=== PATIENT | male | born 1950 | race Caucasian/White ===

== ENCOUNTER 2018-07-28 20:26 | Observation (INO) ==
[2018-07-28] MEDS ORDERED: 0.9 % Sodium Chloride 2,000 ML ONE (20:44)
[2018-07-28] MEDS ORDERED: Isovue-370 500 ML INFUS..BTL IV ONE (21:12)
[2018-07-28] MEDS ORDERED: *HR* FentaNYL (PF) 100 MCG/2 ML VIAL IVP ONE (21:13)
[2018-07-28 21:38] LABS: Basophils % 0.1 %; Eosinophils % 0.1 %; Hematocrit 40.3 % (37.5-50.1); Hemoglobin 13.7 g/dL (12.9-16.9); Immature Granulocytes % 0.3 % (0-4); Lymphocytes # 0.4 K/mcL (0.6-4.6); Lymphocytes % 3.6 %; Mean Corpuscular Hemoglobin 31.9 pg (28.0-33.3); Mean Corpuscular Volume 93.7 fL (83.0-100.0); Mean Platelet Volume 8.8 fL (9.4-12.4); Monocytes # 0.4 K/mcL (0.0-1.3); Monocytes % 3.2 %; Neutrophils # 10.9 K/mcL (1.6-8.9); Platelet Count 145 K/mcL (140-400); Red Cell Distribution Width 12.2 % (11.5-14.5); Segmented Neutrophils % 92.7 %
[2018-07-28 22:00] LABS: BUN/Creatinine Ratio 15 (6-26); Blood Urea Nitrogen 18 mg/dL (8-23); Calcium 8.7 mg/dL (8.6-10.3); Carbon Dioxide 23 mEq/L (23-29); Chloride 107 mEq/L (98-107); Glucose 98 mg/dL (70-105); Osmolality,Calculated 292 (280-300); Sodium 140 mEq/L (136-145); eGFR For Non-African Americans > 60 (> 60)
--- NOTE | 2018-07-28 22:27 | Emergency Department Note ---
Disposition Clinical Impression: Pelvic pain in male, Tachycardia, Dehydration, Status post colonoscopy with polypectomy Disposition: Admitted As Inpatient Condition: Fair Referrals: Jamal Wilkinson MD [Primary Care Provider] - Forms: ED Satisfaction Letter, Work/School Release Time of Disposition: 02:06 Abdominal Pain HPI - General Chief Complaint: ED General Medical Stated Complaint: Hip pain, weakness Time Seen by Provider: 07/28/18 21:01 Source: patient Mode of arrival: private vehicle Limitations: no limitations Nursing Notes Reviewed: Yes Vital Signs Reviewed: Yes - History of Present Illness Pt Subjective Complaint: other (Patient complains of groin discomfort and bilateral hip discomfort.) Onset (ago): hour(s) (He started a couple of hours ago, about 3 hours after undergoing diagnostic colonoscopy) Consistency: constant Pain Severity: moderate Pain Scale: 5 Quality: aching Radiation: none Migration to: no migration Improves with: nothing Worsens with: other (Movement of lower extremities and taking a deep breath) Context: recent surgery/procedure (Had a colonoscopy a couple hours prior to the onset of his discomfort.) Associated symptoms: Reports: nausea Treatments prior to arrival: none - Related Data Home Medications Medication Instructions Recorded Confirmed ALPRAZolam [Xanax 0.5 MG Tablet] 0.5 mg PO DAILY PRN 02/08/16 07/28/18 Clopidogrel [Plavix] 75 mg PO DAILY 02/08/16 07/28/18 Lisinopril [Zestril] 40 mg PO DAILY 02/08/16 07/28/18 Rabeprazole Sodium [Aciphex] 20 mg PO DAILY 02/08/16 07/28/18 Ascorbic Acid [Vitamin C] 1,000 mg PO DAILY 06/21/18 07/28/18 Cholecalciferol (Vitamin D3) 5,000 unit PO DAILY 06/21/18 07/28/18 [Vitamin D] Labetalol HCl 200 mg PO BID 06/21/18 07/28/18 Sodium Bicarbonate 325 mg PO DAILY 06/21/18 07/28/18 Trazodone HCl 100 mg PO HS PRN 06/21/18 07/28/18 Folic Acid 1 mg PO DAILY 07/28/18 07/28/18 Lactobacillus Combination No.8 1 cap PO DAILY 07/28/18 07/28/18 [Adult Probiotic] Nitroglycerin [Nitrostat] 0.4 mg SL DAILY PRN 07/28/18 07/28/18 Ubidecarenone [Coq10] 1 tab PO DAILY 07/28/18 07/28/18 Allergies Allergy/AdvReac Type Severity Reaction Status Date / Time midazolam [From Versed] Allergy Hives Verified 07/28/18 20:27 Sulfa (Sulfonamide Allergy Hives Verified 07/28/18 20:27 Antibiotics) All systems ED: reviewed and negative except as stated. Constitutional: Reports: chills. Denies: fever ENT ED: Denies: ear pain, throat pain, congestion Cardiovascular: Denies: chest pain, palpitations Respiratory: Denies: cough, dyspnea Gastrointestinal: Reports: abdominal pain, nausea Genitourinary: Denies: urgency, dysuria Musculoskeletal: Denies: back pain Integumentary: Denies: rash Abdominal Pain PMH - Past Medical History Medical history: Reports: arthritis, GERD, hyperlipidemia, hypertension, myocardial infarction Male Surgical History: Reports: coronary bypass (CABG) Psychiatric history: Reports: no psych history - Social History Smoking status: Never smoker Alcohol use: Reports: none Drug use: Reports: none Physical Exam - General Limitations: no limitations General appearance: alert, other (Looks a little pale and worn out) - Head Head exam: atraumatic, normocephalic, normal inspection - Eye Eye exam: Present: normal appearance, PERRL, EOMI. Absent: scleral icterus, conjunctival injection - ENT ENT exam: normal exam, normal oropharynx, mucous membranes moist, normal external ear exam - Neck Neck exam: Present: normal inspection, full ROM - Chest Chest inspection: Present: normal inspection, symmetric chest wall rise. Absent: tenderness - Respiratory Respiratory exam: Present: normal lung sounds bilaterally. Absent: respiratory distress, wheezes - Cardiovascular Cardiovascular exam: Present: normal rhythm, tachycardia, normal heart sounds - Abdominal Exam Abdominal exam: Present: soft, Non-Tender, normal bowel sounds - Extremities Exam Extremities exam: Present: normal inspection, full ROM, other (Patient does have some discomfort with both passive and active range of motion of each hip joint.). Absent: tenderness - Neurological Exam Neurological exam: Present: alert, oriented X3. Absent: motor sensory deficit - Psychiatric Psychiatric exam: Present: normal affect, normal mood - Skin Skin exam: Present: warm, dry. Absent: rash Course Course Narrative: Patient presents with hip pain and pelvic pain that started a few hours after colonoscopy. The belly exam is pretty benign and he has discomfort in the actual hip joints when I put his hips through passive and active range of motion. This makes me suspicious that this is a purely muscle skeletal issue. However he shows up feeling uncomfortable and he is pale and he is got a heart rate 140. Whereas this could be a reaction to the medications he had during the colonoscopy, I have to be extremely concerned that there is a perforation and he is just feeling like its in his pelvis or hip joints. I initiated a lab workup. We are going to go directly to CT scan. Disposition will be based on diagnostic results and reevaluation. - Reevaluation(s) Reevaluation #1: Labs look fine. However heart rate continues to be elevated. Patient feels some nausea. CT scan of the abdomen and pelvis revealed no evidence of perforation or other intra-abdominal process. Patient does have ketones in his urine and he just feels generally ill. He may be a little dehydrated because he was nothing by mouth before the scan. He may also be feeling bad because he was medicated for the colonoscopy. When not seeing an acute cardiac issue. There is no sign of perforation. No evidence of active infection. I am going to keep the patient overnight and hydrate him a little bit more as you are feels in the morning. I will re-spoke with the hospitalist who is accepted for admission. Time: 02:05 - Consultations Consultation #1: Dr. Maldonado, hospitalist - I discussed the case with the hospitalist. He has accepted the patient for admission. Time: 02:05 Vital Signs Temperature 98.1 F 07/28/18 20:27 Pulse Rate 143 07/28/18 20:27 Respiratory Rate 20 07/28/18 20:27 Blood Pressure 152/101 07/28/18 20:27 O2 Sat by Pulse Oximetry 98 07/28/18 20:27 Temperature 98.9 F 07/29/18 02:02 Pulse Rate 111 07/29/18 02:02 Respiratory Rate 20 07/29/18 02:02 Blood Pressure 131/78 07/29/18 02:02 O2 Sat by Pulse Oximetry 98 07/29/18 02:02 Oxygen Delivery Oxygen Delivery Room Air Abdominal Pain - Medical Records Medical records reviewed: Yes I reviewed the patient's medical records. - Lab Data Lab results reviewed: Yes I reviewed the patient's lab results. Result diagrams: 07/28/18 21:32 07/28/18 21:32 Lab Results 07/28/18 07/28/18 07/28/18 Range/Units 21:32 21:32 21:32 WBC 11.8 H (4.3-11.1) K/mcL RBC 4.30 (4.19-5.50) M/mcL Hgb 13.7 (12.9-16.9) g/dL Hct 40.3 (37.5-50.1) % MCV 93.7 (83.0-100.0) fL MCH 31.9 (28.0-33.3) pg MCHC 34.0 (31.6-35.5) g/dL RDW 12.2 (11.5-14.5) % Plt Count 145 (140-400) K/mcL MPV 8.8 L (9.4-12.4) fL Immature Gran % 0.3 (0-4) % Seg Neutrophils % 92.7 % Lymphocytes % 3.6 % Monocytes % 3.2 % Eosinophils % 0.1 % Basophils % 0.1 % Neutrophils # 10.9 H (1.6-8.9) K/mcL Lymphocytes # 0.4 L (0.6-4.6) K/mcL Monocytes # 0.4 (0.0-1.3) K/mcL Eosinophils # 0.0 (0.0-0.6) K/mcL Basophils # 0.0 (0.0-0.2) K/mcL Sodium 140 (136-145) mEq/L Potassium 4.0 (3.5-5.1) mEq/L Chloride 107 (98-107) mEq/L Carbon Dioxide 23 (23-29) mEq/L BUN 18 (8-23) mg/dL Creatinine 1.17 (0.70-1.30) mg/dL Est GFR ( Amer) > 60 (> 60) Est GFR (Non-Af Amer) > 60 (> 60) BUN/Creatinine Ratio 15 (6-26) Glucose 98 (70-105) mg/dL Calculated Osmolality 292 (280-300) Lactic Acid 0.6 (0.5-2.2) mmol/L Calcium 8.7 (8.6-10.3) mg/dL Troponin I (< 0.04) ng/mL Urine Color (Yellow) Urine Clarity (Clear) Urine pH (5.0-8.0) pH Units Ur Specific [place] (1.010-1.025) Urine Protein (Neg-Trace) mg/dL Urine Glucose (UA) (Normal) mg/dL Urine Ketones (Negative) mg/dL Urine Blood (Negative) Urine Nitrite (Negative) Urine Bilirubin (Negative) Urine Urobilinogen (Normal) mg/dL Ur Leukocyte Esterase (Negative) Ur Culture Indicated? (NO) 07/28/18 07/29/18 Range/Units 21:32 01:14 WBC (4.3-11.1) K/mcL RBC (4.19-5.50) M/mcL Hgb (12.9-16.9) g/dL Hct (37.5-50.1) % MCV (83.0-100.0) fL MCH (28.0-33.3) pg MCHC (31.6-35.5) g/dL RDW (11.5-14.5) % Plt Count (140-400) K/mcL MPV (9.4-12.4) fL Immature Gran % (0-4) % Seg Neutrophils % % Lymphocytes % % Monocytes % % Eosinophils % % Basophils % % Neutrophils # (1.6-8.9) K/mcL Lymphocytes # (0.6-4.6) K/mcL Monocytes # (0.0-1.3) K/mcL Eosinophils # (0.0-0.6) K/mcL Basophils # (0.0-0.2) K/mcL Sodium (136-145) mEq/L Potassium (3.5-5.1) mEq/L Chloride (98-107) mEq/L Carbon Dioxide (23-29) mEq/L BUN (8-23) mg/dL Creatinine (0.70-1.30) mg/dL Est GFR ( Amer) (> 60) Est GFR (Non-Af Amer) (> 60) BUN/Creatinine Ratio (6-26) Glucose (70-105) mg/dL Calculated Osmolality (280-300) Lactic Acid (0.5-2.2) mmol/L Calcium (8.6-10.3) mg/dL Troponin I < 0.03 (< 0.04) ng/mL Urine Color Yellow (Yellow) Urine Clarity Clear (Clear) Urine pH 5.0 (5.0-8.0) pH Units Ur Specific [place] 1.015 (1.010-1.025) Urine Protein Negative (Neg-Trace) mg/dL Urine Glucose (UA) Normal (Normal) mg/dL Urine Ketones 80 H (Negative) mg/dL Urine Blood Negative (Negative) Urine Nitrite Negative (Negative) Urine Bilirubin Negative (Negative) Urine Urobilinogen Normal (Normal) mg/dL Ur Leukocyte Esterase Negative (Negative) Ur Culture Indicated? NO (NO) - Radiology Data Radiology results reviewed: Yes I reviewed the patient's radiology results. - EKG Data EKG attestation: Yes I reviewed and interpreted this EKG. EKG results narrative: Twelve-lead EKG performed at 20 1:22 PM ordered, reviewed and interpreted by ED physician shows sinus tachycardia at a rate of 1:15. Normal axis. Good hour progression across precordium. No acute ischemic changes. Intervals are within normal limits.
[2018-07-29 01:28] LABS: Bilirubin,Urine Negative (Negative); Blood,Urine Negative (Negative); Clarity,Urine Clear (Clear); Color,Urine Yellow (Yellow); Glucose,Urine (UA) Normal (Normal); Ketones,Urine 80 mg/dL (Negative); Leukocyte Esterase,Urine Negative (Negative); Nitrite,Urine Negative (Negative); Protein,Urine Negative (Neg-Trace); Specific Gravity,Urine 1.015 (1.010-1.025); Urobilinogen,Urine Normal (Normal)
[2018-07-29] MEDS ORDERED: Isovue-370 500 ML INFUS..BTL IV ONE (02:56)
[2018-07-29] MEDS ORDERED: Naloxone 0.4 MG/ML INJ IVP PRN (02:56)
[2018-07-29] MEDS: 0.9 % Sodium Chloride 1,000 ML IVC SCH ×2 (03:37→15:14)
[2018-07-29 10:37] LABS: Basophils % 0.1 %; Eosinophils % 0.1 %; Hematocrit 37.9 % (37.5-50.1); Hemoglobin 12.7 g/dL (12.9-16.9); Immature Granulocytes % 0.4 % (0-4); Lymphocytes # 1.3 K/mcL (0.6-4.6); Lymphocytes % 8.7 %; Mean Corpuscular HGB Conc 33.5 g/dL (31.6-35.5); Mean Corpuscular Hemoglobin 31.5 pg (28.0-33.3); Mean Platelet Volume 8.6 fL (9.4-12.4); Monocytes # 0.8 K/mcL (0.0-1.3); Monocytes % 5.6 %; Neutrophils # 12.3 K/mcL (1.6-8.9); Platelet Count 155 K/mcL (140-400); Red Blood Count 4.03 M/mcL (4.19-5.50); Red Cell Distribution Width 12.5 % (11.5-14.5); Segmented Neutrophils % 85.1 %
[2018-07-29 10:57] LABS: Alanine Aminotransferase 18 Units/L (7-52); Albumin 3.4 g/dL (3.5-5.7); Albumin/Globulin Ratio 1.4 (1.1-2.2); Alkaline Phosphatase 44 Units/L (34-104); Aspartate Amino Transferase 21 Units/L (13-39); BUN/Creatinine Ratio 13 (6-26); Bilirubin,Total 1.5 mg/dL (0.3-1.0); Blood Urea Nitrogen 16 mg/dL (8-23); Calcium 8.9 mg/dL (8.6-10.3); Carbon Dioxide 26 mEq/L (23-29); Chloride 104 mEq/L (98-107); Globulin 2.4 g/dL (2.4-3.5); Glucose 112 mg/dL (70-105); Osmolality,Calculated 286 (280-300); Potassium 3.9 mEq/L (3.5-5.1); Sodium 137 mEq/L (136-145); Total Protein 5.8 g/dL (6.4-8.9); eGFR For Non-African Americans 57 (> 60)
[2018-07-29] MEDS ORDERED: Acetaminophen 325 MG TABLET PO PRN (14:43)
--- NOTE | 2018-07-29 14:48 | Internal Med History&Physical ---
Date of Encounter: 07/29/18 Time of Encounter: 14:10 Assessment and Plan (1) Lingular pneumonia Current visit: Yes Status: Acute Blood cultures will be drawn and he will be started empirically on Zosyn and Zithromax with lactobacillus. (2) CKD (chronic kidney disease) stage 2, GFR 60-89 ml/min Current visit: Yes Status: Acute Stable. Creatinine was 1.27 on 07/08/2014. Continue to monitor. (3) Hypertension Current visit: Yes Status: Chronic Labetalol will be continued. Lisinopril will be held and azotemia will be monitored. Qualifiers: Hypertension type: essential hypertension Qualified Code(s): I10 - Essential (primary) hypertension (4) CAD (coronary artery disease) Current visit: Yes Status: Acute Continue Plavix and labetalol. Qualifiers: Coronary Disease-Associated Artery/Lesion type: unspecified vessel or lesion type Associated angina: angina presence unspecified Qualified Code(s): I 25.10 - Atherosclerotic heart disease of [place] coronary artery without angina pectoris (5) Barretts esophagus Current visit: Yes Status: Acute Continue PPI. Qualifiers: Duque's esophagus type: with dysplasia of unspecified degree Qualified Code(s): K22.719 - Duque's esophagus with dysplasia, unspecified; K22.71 - Duque's esophagus with dysplasia Internal Medicine - H&P: HPI Chief complaint: Chills, hip pain, vomiting Admitted From: Emergency Dept Plans for Post Hospital Care: Home History of present illness: Mr. Whitehead is a 68 year old male who came to emergency room stating he had been released from [facility] approximately 4 PM following uneventful outpatient EGD and colonoscopy with 3 polyps resected. Approximately 6 PM at home while at leisure he had a sudden onset of chills which lasted approximately an hour and a half. He spoke to a friend who was a title i director who thought it might be early signs of flu or other infection. He decided to come to emergency room for further evaluation. He experienced severe sudden pain in his hips while walking to his vehicle to come to emergency room. He also had a single episode of vomiting. He was evaluated in emergency room and found to have slight leukocytosis but left shift present. Abdominal CT showed probable lingular infiltrate. He was admitted to [facility] floor for ongoing care needs. He states his hip pain has resolved. He denies dyspnea or cough or abdominal pain. Past Med Surg Social Fam HX - Past Medical History Medical history: arthritis, GERD, hyperlipidemia, hypertension, myocardial infarction Additional medical history: CAD, SHINGLES, BARRETTS ESOPHAGUS, ANEMIA, BPH, OPEN HEART 4 BYPASS, [place], DIVERTICULOSIS, COLON POLYPS, INSONMIA Psychiatric history: no psych history - Past Surgical History Surgical History: coronary bypass (CABG) Additional surgical history: HEART CATH 2 STENTS, EGD, COLONOSCOPY - Social History Smoking Status: Never smoker Smokeless Tobacco Status: No Alcohol use: none Drug use: none - Family History Father Living Status: Cause of : [place] Hx Family Cardiac Disorders: Yes ([place]) Internal Medicine - H&P: Meds ALPRAZolam [Xanax 0.5 MG Tablet] 0.5 mg PO DAILY PRN 02/08/16 [History] Clopidogrel [Plavix] 75 mg PO DAILY 02/08/16 [History] Lisinopril [Zestril] 40 mg PO DAILY 02/08/16 [History] Rabeprazole Sodium [Aciphex] 20 mg PO DAILY 02/08/16 [History] Ascorbic Acid [Vitamin C] 1,000 mg PO DAILY 06/21/18 [History] Cholecalciferol (Vitamin D3) [Vitamin D] 5,000 unit PO DAILY 06/21/18 [History] Labetalol HCl 200 mg PO BID 06/21/18 [History] Sodium Bicarbonate 325 mg PO DAILY 06/21/18 [History] Trazodone HCl 100 mg PO HS PRN 06/21/18 [History] Folic Acid 1 mg PO DAILY 07/28/18 [History] Lactobacillus Combination No.8 [Adult Probiotic] 1 cap PO DAILY 07/28/18 [History] Nitroglycerin [Nitrostat] 0.4 mg SL DAILY PRN 07/28/18 [History] Ubidecarenone [Coq10] 1 tab PO DAILY 07/28/18 [History] Allergy/AdvReac Type Severity Reaction Status Date / Time midazolam [From Versed] Allergy Hives Verified 07/28/18 20:27 Sulfa (Sulfonamide Allergy Hives Verified 07/28/18 20:27 Antibiotics) All Systems PM: A 10-system review of systems was performed and is negative for pertinent findings except as documented above in the HPI. Review of systems: Gen.: He states his weight has been stable the past few months Cardiovascular: He has history of hypertension and known ASHD status post [place] followed by four-vessel CABG 2006. He had 2 stents placed approximately 2010. He had EST August 2016 without further intervention recommended. He had echocardiogram 09/14/2016 which showed LVEF of 55-60%. There was mild diastolic dysfunction noted with E/A ratio of 0.8. No significant valvular abnormality was seen. He denies DVT or pulmonary embolus. Respiratory: He is a lifelong nonsmoker and has no known chronic lung disease. He thinks he possibly has MARIELY but has not had formal testing. GI: He denies disorders of his liver gallbladder or exocrine pancreas. He has history of Duque's esophagus. He had panendoscopy on July 28 with unremarkable esophagus but 3 colon polyps were found and resected. : He denies hematuria or kidney stones. He was unaware he likely has chronic kidney disease stage II. He has had dysuria on initiating urination over the past few days. Neurologic: He denies large distribution strokes or seizures. 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 He reports he was given kehinde roids. Just prior to being referred to a surgeon for probable splenectomy he states his platelet count miraculously significantly nayeli and has remained normal for many years. He denies internal malignancies. Psychiatric: He denies anxiety depression or other mental health issues [place] skeletal: He has DJD but denies gout or other bone joint or muscle disorders. - Constitutional Vitals: Temp Pulse Resp BP Pulse Ox 99.1 F 76 16 112/65 96 07/29/18 11:04 07/29/18 11:04 07/29/18 11:04 07/29/18 11:04 07/29/18 11:04 Exam: Gen.: He is a well-developed well-nourished male resting comfortably in bed who appears in no acute distress at present time HEENT: Head is atraumatic and normocephalic. Eyes: EOMI. There is no scleral icterus. Mouth: Mucosa is moist. Neck: Supple and nontender. There is no thyromegaly or adenopathy noted. Heart: Regular without murmurs gallops or ectopics Lungs: No wheezes or crackles are heard. He has egophony in the left posterior lateral basilar area. Abdomen: Soft and nontender. No masses or guarding are noted. Extremities: There is no cyanosis edema or clubbing noted. Dorsalis pedis and posttibial pulses are 1-2 over 2 bilaterally. Neurologic: Mental status: He is talkative and a good historian. Cranial nerves: Smile is symmetric. Forehead wrinkles bilaterally. Tongue protrudes midline. EOMI. Motor: There is no pronator drift. Cerebellar: Finger to nose is intact bilaterally. Skin: Warm and dry Internal Med - H&P Results - Labs CBC & Chem 7: 07/29/18 10:29 07/29/18 10:29 Labs: Short CBC 07/28/18 07/29/18 Range/Units 21:32 10:29 WBC 11.8 H 14.4 H (4.3-11.1) K/mcL Hgb 13.7 12.7 L (12.9-16.9) g/dL Hct 40.3 37.9 (37.5-50.1) % Plt Count 145 155 (140-400) K/mcL Neutrophils # 10.9 H 12.3 H (1.6-8.9) K/mcL BMP 07/28/18 07/29/18 21:32 10:29 Sodium 140 137 Potassium 4.0 3.9 Chloride 107 104 Carbon Dioxide 23 26 BUN 18 16 Creatinine 1.17 1.27 Glucose 98 112 H Calcium 8.7 8.9 Cardiac Enzymes 07/28/18 Range/Units 21:32 Troponin I < 0.03 (< 0.04) ng/mL Liver Function 07/29/18 Range/Units 10:29 Total Bilirubin 1.5 H (0.3-1.0) mg/dL AST 21 (13-39) Units/L ALT 18 (7-52) Units/L Alkaline Phosphatase 44 (34-104) Units/L Albumin 3.4 L (3.5-5.7) g/dL Urine 07/29/18 Range/Units 01:14 Urine Color Yellow (Yellow) Urine Clarity Clear (Clear) Urine pH 5.0 (5.0-8.0) pH Units Ur Specific [place] 1.015 (1.010-1.025) Urine Protein Negative (Neg-Trace) mg/dL Urine Glucose (UA) Normal (Normal) mg/dL - Impressions ITS Impressions Abdomen/Pelvis CT 07/28/18 21:12 IMPRESSION: 1. Uncomplicated diverticulosis. 2. Cholelithiasis 3. Benign cysts versus hemangiomas in the liver 4. Lingular consolidation in the lungs. Correlate with auscultation. 5. Moderate hiatal hernia. D/ / Galen Villalobos / Galen Villalobos Interpreting Provider: Galen Villalobos
[2018-07-29] MEDS ORDERED: Azithromycin 500 MG in D5% in Water 250 ML IVPB SCH (15:00)
[2018-07-29] MEDS: 0.45 % Sodium Chloride w/KCl 20 MEQ/1,000 ML MLS IVC SCH (17:25)
[2018-07-29] MEDS: Piperacillin/Tazobactam 3.375 GM in 0.9 % Sodium Chloride Mini Bag 100 ML IVPB SCH (17:26)
[2018-07-29] MEDS ORDERED: traZODone 50 MG TABLET PO PRN (17:43)
[2018-07-29] MEDS: Lactobacillus 1 EACH CAP.SPRINK PO SCH (22:06)
[2018-07-30] MEDS: Piperacillin/Tazobactam 3.375 GM in 0.9 % Sodium Chloride Mini Bag 100 ML IVPB SCH ×2 (03:00→08:52)
[2018-07-30] MEDS: 0.45 % Sodium Chloride w/KCl 20 MEQ/1,000 ML MLS IVC SCH (06:17)
[2018-07-30 06:55] LABS: Basophils % 0.3 %; Eosinophils # 0.2 K/mcL (0.0-0.6); Eosinophils % 2.7 %; Hematocrit 36.3 % (37.5-50.1); Hemoglobin 12.2 g/dL (12.9-16.9); Immature Granulocytes % 0.3 % (0-4); Lymphocytes # 1.3 K/mcL (0.6-4.6); Lymphocytes % 17.6 %; Mean Corpuscular HGB Conc 33.6 g/dL (31.6-35.5); Mean Corpuscular Hemoglobin 31.7 pg (28.0-33.3); Mean Corpuscular Volume 94.3 fL (83.0-100.0); Mean Platelet Volume 9.2 fL (9.4-12.4); Monocytes # 0.5 K/mcL (0.0-1.3); Monocytes % 6.1 %; Neutrophils # 5.4 K/mcL (1.6-8.9); Platelet Count 151 K/mcL (140-400); Red Blood Count 3.85 M/mcL (4.19-5.50); Red Cell Distribution Width 12.5 % (11.5-14.5)
[2018-07-30 07:21] LABS: Alanine Aminotransferase 16 Units/L (7-52); Albumin 3.4 g/dL (3.5-5.7); Albumin/Globulin Ratio 1.4 (1.1-2.2); Alkaline Phosphatase 42 Units/L (34-104); Aspartate Amino Transferase 17 Units/L (13-39); BUN/Creatinine Ratio 13 (6-26); Blood Urea Nitrogen 14 mg/dL (8-23); Calcium 8.9 mg/dL (8.6-10.3); Carbon Dioxide 25 mEq/L (23-29); Chloride 108 mEq/L (98-107); Globulin 2.4 g/dL (2.4-3.5); Glucose 103 mg/dL (70-105); Osmolality,Calculated 289 (280-300); Sodium 139 mEq/L (136-145); Total Protein 5.8 g/dL (6.4-8.9); eGFR For Non-African Americans > 60 (> 60)
[2018-07-30] MEDS: Lactobacillus 1 EACH CAP.SPRINK PO SCH (08:51)
--- NOTE | 2018-07-30 09:45 | Discharge Summary ---
Orders not resulted at time of discharge: Pending orders 07/28/18 21:09 EKG [ECG 12 lead ECG] [ECG] Stat 07/29/18 15:22 Culture,Blood [BC] Stat Date of Encounter: 07/30/18 Time of Encounter: 09:30 - Discharge Diagnosis (1) Lingular pneumonia Priority: Primary Status: Acute (2) CKD (chronic kidney disease) stage 2, GFR 60-89 ml/min Priority: Secondary Status: Chronic (3) Hypertension Priority: Secondary Status: Chronic Qualifiers: Hypertension type: essential hypertension Qualified Code(s): I10 - Essential (primary) hypertension (4) CAD (coronary artery disease) Priority: Secondary Status: Chronic Qualifiers: Coronary Disease-Associated Artery/Lesion type: unspecified vessel or lesion type Associated angina: angina presence unspecified Qualified Code(s): I25.10 - Atherosclerotic heart disease of [place] coronary artery without angina pectoris (5) Barretts esophagus Priority: Secondary Status: Chronic Qualifiers: Duque's esophagus type: with dysplasia of unspecified degree Qualified Code(s): K22.719 - Duque's esophagus with dysplasia, unspecified; K22.71 - Duque's esophagus with dysplasia Hospital course: Mr. Whitehead is a 68 year old male who came to emergency room stating he had been released from [facility] approximately 4 PM following uneventful outpatient EGD and colonoscopy with 3 polyps resected. Approximately 6 PM at home while at leisure he had a sudden onset of chills which lasted approximately an hour and a half. He spoke to a friend who was a sandwich peddler who thought it might be early signs of flu or other infection. He decided to come to emergency room for further evaluation. He experienced severe sudden pain in his hips while walking to his vehicle to come to emergency room. He also had a single episode of vomiting. He was evaluated in emergency room and found to have slight leukocytosis but left shift present. Abdominal CT showed probable lingular infiltrate. He was admitted to [facility] floor for ongoing care needs. Initial orders were written by the emergency room physician. I saw him on July 29 and performed a history and physical. He was started empirically on Zosyn and Zithromax with lactobacillus after blood cultures were drawn. He was unaware the CT in emergency room had showed lingular infiltrate. He had good clinical response with normalization of WBC and left shift on labs July 30. He felt improved and stable for discharge home. He will continue with antibiotic and probiotic for 4 additional days at discharge. Final blood culture reports are pending at time of discharge. Lisinopril was held and IV fluids were given. Azotemia improved with creatinine decreasing to 1.11 on day of discharge with estimated GFR greater than 60. He will remain off lisinopril and continue labetalol at discharge. His PCP can monitor renal indices and blood pressure. Hemoglobin decreased to 12.2 by day of discharge. His PCP can monitor and do anemia workup as indicated. He reported on day of discharge that he had frequent night sweats occurring in the past year. I told him he should discuss this further with his PCP. On July 30 he felt improved and stable for discharge home. He will follow with his PCP Dr. Jamal Wilkinson within 1 week. - Time Spent with Patient Total time spent providing and/or coordinating discharge services: - Discharge Medications Prescriptions: Amoxicillin/Clavulanate [Augmentin] 875 mg PO BIDWM #8 tablet Azithromycin [Zithromax] 250 mg PO DAILY #4 tablet Lactobacillus [Culturelle] 1 each PO BID #8 cap.sprink Home Medications: ALPRAZolam [Xanax 0.5 MG Tablet] 0.5 mg PO DAILY PRN 02/08/16 [History] Clopidogrel [Plavix] 75 mg PO DAILY 02/08/16 [History] Rabeprazole Sodium [Aciphex] 20 mg PO DAILY 02/08/16 [History] Ascorbic Acid [Vitamin C] 1,000 mg PO DAILY 06/21/18 [History] Cholecalciferol (Vitamin D3) [Vitamin D3] 5,000 unit PO DAILY 06/21/18 [History] Labetalol HCl 200 mg PO BID 06/21/18 [History] Sodium Bicarbonate 325 mg PO DAILY 06/21/18 [History] Trazodone HCl 100 mg PO HS PRN 06/21/18 [History] Folic Acid 1 mg PO DAILY 07/28/18 [History] Lactobacillus Combination No.8 [Adult Probiotic] 1 cap PO DAILY 07/28/18 [History] Nitroglycerin [Nitrostat] 0.4 mg SL DAILY PRN 07/28/18 [History] Ubidecarenone [Coq10] 1 tab PO DAILY 07/28/18 [History] Amoxicillin/Clavulanate [Augmentin] 875 mg PO BIDWM #8 tablet 07/30/18 [Rx] Azithromycin [Zithromax] 250 mg PO DAILY #4 tablet 07/30/18 [Rx] Lactobacillus [Culturelle] 1 each PO BID #8 cap.sprink 07/30/18 [Rx] Allergies/Adverse Reactions: Allergy/AdvReac Type Severity Reaction Status Date / Time midazolam [From Versed] Allergy Hives Verified 07/28/18 20:27 Sulfa (Sulfonamide Allergy Hives Verified 07/28/18 20:27 Antibiotics) Date of admission: 07/29/18 02:19 Primary care physician: Jamal Wilkinson MD - Constitutional Vitals: Temp Pulse Resp BP Pulse Ox 97.6 F 87 18 144/91 98 07/30/18 07:00 07/30/18 07:00 07/30/18 07:00 07/30/18 07:00 07/30/18 07:00 - Patient Status Disposition: Home, Self-Care Condition: Fair - Discharge Instructions Follow Up With: Jamal Wilkinson MD [Primary Care Provider] - 1 week - Diet and Activity Activity: resume usual activities as tolerated Diet: advance to your usual diet
[2018-07-30 11:18] VITALS: BP 176/81
--- NOTE | 2018-07-31 15:29 | Electrocardiograph Report ---
[address] [address] Test Date: 2018-07-28 Pat Name: Jose Whitehead Department: [id number] Room: [facility] Gender: M Backer Up: Naresh : 1950 Requested By: Edison Taylor Order Number: [id number] Reading MD: Louise Spencer Measurements Intervals [place] Rate: 115 P: 86 OK: 173 QRS: 64 QRSD: 102 T: 167 QT: 238 QTc: 306 Interpretive Statements SINUS TACHYCARDIA LOW QRS VOLTAGE IN EXTREMITY LEADS ARTIFACT Electronically Signed On 07-31-2018 15:28:06 EST by Louise Specner
== END 2018-07-30 14:35 | disposition home or self-care (01) ==
LOC: INPPIK 20:26 → EMEROOPIK 20:26 → INPPIK 07-29 02:44
PROVIDERS: ADMIT Internal Medicine; ATTEND Internal Medicine